=== PATIENT | male | born 1955 | race Caucasian/White ===

== ENCOUNTER 2024-08-21 08:51 | Inpatient (IN) ==
--- NOTE | 2024-08-21 09:31 | Emergency Department Note ---
Impression & Plan Wide-complex tachycardia, Palpitations, History of coronary artery disease ED Provider Note NAME: ELISA QUISPE AGE: 69 SEX: M : 1955 ARRIVES VIA: Walk-In INFORMANT: Patient ED PROVIDER(S): Anant Baxter MD CHIEF COMPLAINT: Nonsustained wide-complex tachycardia on heart monitor, referred. PLAN: Disposition: Admit MEDICAL DECISION MAKING: The patient is a pleasant 69-year-old gentleman with a past medical history of CAD with history of PCI remotely on low-dose aspirin who presents to the emergency department via walk-in accompanied by his for evaluation and admission for episodes of wide-complex tachycardia that were identified on an outpatient ZIO monitor. Patient reports that he has been having episodes of palpitations where he feels lightheaded as if he may pass out. He denies any chest pain or pressure when these occur. He reports since having his heart monitor his episodes were not as severe but did feel several. Due to concern for nonsustained ventricular tachycardia he was referred to the emergency department for admission and subsequent testing including echo and heart catheterization. Of note, as an aside, the patient reports recently receiving results of a prostate biopsy yesterday as well which was positive for prostate cancer. He reports he had an MRI scheduled for tomorrow but understands this will need to be rescheduled but hopes that he could be done soon as possible. On evaluation the patient no acute distress, afebrile with blood pressure 180s/90s and vital signs otherwise stable. Exam is otherwise unremarkable. EKG without overt acute ischemia. CXR negative for acute cardiopulmonary process per my personal preliminary review/interpretation. WBC within normal limits. H/H 13.1/39.3 without prior for comparison. Platelets within normal limits. Chemistry without metabolic acidosis. Electrolytes and LFTs unremarkable. High-sensitivity troponin 5.0, within normal limits. Lipase normal. TSH within normal notes. Dr. Krause, [facility], aware of patient's presentation and will patient. Appreciate consultation and recommendations. Echo and Heart cath to be performed today. Case was discussed with Leidy Frost, with [facility] who will evaluate the patient for admission. Further management per admitting team. Triage Nursing notes reviewed and agree them. Prior/external medical records reviewed Vital Signs: reviewed Differential diagnosis: Premature contractions, electrolyte abnormality, cardiac dysrhythmia, thyroid dysfunction, pulmonary embolism, infection, gastrointestinal, as well as other pathologies. ER treatment provided: See below. Diagnostics interpreted by me: ECG: Sinus bradycardia, 59 bpm, no ectopy, no overt ST elevation or depression, QTc 417, QRS 92 per Cardiac Monitoring: An order for continuous cardiac monitoring was placed and demonstrated Sinus bradycardia, 59 bpm, no ectopy Laboratory studies: See below Imaging studies: See below Consultation(s): Dr. Krause, [facility] cardiology. Case was discussed with Олег Celis magda LERMA[facility] who will evaluate the patient for admission. HPI: Per MDM. ROS: See above HPI for pertinent positives & negatives. A total of 10 systems reviewed and were otherwise negative. VITALS:See Below PHYSICAL EXAMINATION: GENERAL: Awake, alert, well-appearing, in no distress HENT: Normocephalic, atraumatic. Oropharynx unremarkable. EYES: Normal conjunctiva. Sclera non-icteric. NECK: Supple. No nuchal rigidity. FROM. No JVD. RESPIRATORY: Clear to auscultation. CARDIAC: Regular rate, normal rhythm. Extremities warm and well perfused. Pulses equal. ABDOMEN: Soft, non-distended. No tenderness to palpation. No rebound or guarding. No masses. MUSCULOSKELETAL: Chest examination reveals no tenderness. The back is symmetrical on inspection without obvious abnormality. There is no CVA tenderness to palpation. No joint edema. LOWER EXTREMITIES: Calves are equal size bilaterally and non-tender. No edema. No discoloration. NEURO: Normal sensorium. No sensory or motor deficits noted. SKIN: No rash or jaundice noted. 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 Beliefs That Will Affect Care: None Current Living Situation: Spouse Other Information That Helps Us Care for You: No Feels Safe at Home: Yes Safety Concerns: Feels Safe At This Time Assistive Devices: CPAP, Glasses and Other Assistive Devices Comment: dental implants Allergies Allergies Allergy/AdvReac Type Severity Reaction Status Date / Time clopidogrel [From Plavix] AdvReac Severe SEE COMMENT Verified 08/21/24 13:27 Home Meds Home Medications Medication Instructions Recorded Confirmed metoprolol succinate 25 mg 25 mg PO HS 07/03/21 08/21/24 tablet,extended release 24 hr omega 5-jld-xgz-fish oil 1,000 mg 1 cap PO HS 07/03/21 08/21/24 (120 mg-180 mg) capsule (Fish Oil) atorvastatin 20 mg tablet 0 mg PO QAM 08/21/24 08/21/24 lisinopril 20 mg tablet 20 mg PO QAM 08/21/24 08/21/24 Previous Rx's Medication Instructions Recorded amiodarone 200 mg tablet 200 mg PO QAM #30 tabs 08/21/24 Results & Data (ED) Vital Signs Vital Signs - 24 hr 08/21/24 08:59 08/21/24 09:26 08/21/24 09:51 Temperature 36.6 C Temperature Source Temporal Artery Scan Pulse Rate 60 54 L Pulse Rhythm Regular Pulse Strength Normal Respiratory Rate 18 Respiratory Effort / Characteristics Non-Labored Spontaneous Respiratory Depth Normal Respiratory Pattern Regular Blood Pressure 182/94 H Blood Pressure Mean 123 Blood Pressure Position Sitting Pulse Oximetry 99 Oxygen Delivery Method Room Air Room Air Sepsis Recent Fever Within 48 Hours No Sepsis New/Unexplained Change in Mental Status N/A Sepsis Action Taken by Nursing No Action Required 08/21/24 10:00 08/21/24 10:16 08/21/24 10:30 Temperature Temperature Source Pulse Rate 54 L 57 L 55 L Pulse Rhythm Pulse Strength Respiratory Rate 13 21 12 Respiratory Effort / Characteristics Respiratory Depth Respiratory Pattern Blood Pressure 151/89 H 150/82 H Blood Pressure Mean 108 102 Blood Pressure Position Pulse Oximetry 100 96 98 Oxygen Delivery Method Room Air Sepsis Recent Fever Within 48 Hours Sepsis New/Unexplained Change in Mental Status Sepsis Action Taken by Nursing Laboratory Data Attestation: I reviewed the patient's lab results. 08/21/24 09:30 08/21/24 09:30 Lab Results 08/21/24 Range/Units 09:30 WBC 5.58 (4.8-10.8) K/ul RBC 4.17 L (4.70-6.10) M/uL Hgb 13.1 L (14.0-18.0) g/dl Hct 39.3 L (42.0-52.0) % MCV 94.2 (80.0-100.0) fL MCH 31.4 (25.0-34.0) pg MCHC 33.3 (32.0-36.0) g/dL RDW Std Deviation 49.1 H (36.4-46.3) fL RDW Coeff of Jasmeet 14.2 (11.5-14.5) % Plt Count 278 (130-400) K/uL MPV 8.9 L (9.4-12.4) fL Immature Gran % (Auto) 0.2 % Neut % (Auto) 58.8 % Lymph % (Auto) 29.2 % [place] % (Auto) 7.5 % Eos % (Auto) 3.0 % Baso % (Auto) 1.3 % Neut # (Auto) 3.28 (1.40-6.50) K/uL Lymph # (Auto) 1.63 (1.20-3.40) K/uL [place] # (Auto) 0.42 (0.11-0.59) K/uL Eos # (Auto) 0.17 (0.00-0.50) K/uL Baso # (Auto) 0.07 (0.00-0.20) K/uL Immature Gran # (Auto) 0.01 (0.01-0.20) K/uL PT 10.0 (9.0-12.0) Seconds INR 0.9 (0.9-1.1) Sodium 138 (136-145) mmol/L Potassium 4.4 (3.5-5.1) mmol/L Chloride 105 (98-107) mmol/L Carbon Dioxide 24 (21-32) mmol/L Anion Gap 9 (3-11) BUN 20 (6-23) mg/dl Creatinine 0.93 (0.6-1.4) mg/dl Est Cr Clr Drug Dosing 77.1 ml/min eGFR 90.00 BUN/Creatinine Ratio 21.5 H (10-20) Glucose 91 (70-99(Fasting)) mg/dl Calcium 9.2 (8.6-10.3) mg/dl Phosphorus 3.1 (2.5-4.9) mg/dl Magnesium 2.1 (1.7-2.4) mg/dl Total Bilirubin 0.4 (0.2-1.0) mg/dl AST 20 (13-39) U/L ALT 12 (7-52) U/L Alkaline Phosphatase 67 (34-104) U/L Troponin I High Sens 5.0 (0-20) pg/ml Total Protein 7.1 (6.0-8.3) gm/dl Albumin 4.5 (3.4-5.0) gm/dl Globulin 2.6 (2.5-4.0) gm/dl Albumin/Globulin Ratio 1.7 (0.9-2) Lipase 27 (11-82) U/L TSH 2.228 (0.300-4.500) uIu/ml Administered Medications Discontinued Medications Amiodarone HCl (Amiodarone 200 Mg Tab) 200 [facility] Stop: 09/20/24 14:44 Last Admin: 08/21/24 15:37 Dose: 200 mg Documented By: LISA Aspirin (Aspirin 81 Mg Chew) 324 mg PO NOW STA Stop: 08/21/24 12:03 Last Admin: 08/21/24 13:00 Dose: 324 mg Documented By: LISA Fentanyl Citrate (Fentanyl Citrate Pf 100 Mcg/2 Ml Vial) Confirm Administered Dose 100 mcg .ROUTE .STK-MED ONE Stop: 08/21/24 13:30 Last Increment: 08/21/24 14:10 Dose: 75 mcg Documented By: DAVID Heparin Sodium (Porcine) (Heparin (Porcine) 1000 Unit/Ml 10 Ml ([employer] Professional Use Only)) Confirm Administered Dose 10,000 units .ROUTE .STK-MED ONE Stop: 08/21/24 13:30 Last Admin: 08/21/24 14:11 Dose: 5,000 units Documented By: DAVID Heparin Sodium/Sodium Chloride (Heparin In Nss Infusion 1000 Unit/500 Ml (2 U/Ml) Bag) Confirm Administered Dose 3,000 units IV .STK-MED ONE Stop: 08/21/24 13:30 Last Admin: 08/21/24 14:11 Dose: 3,000 units Documented By: DAVID Sodium Chloride (Nss) 1,000 mls @ 100 mls/hr IV .Q10H GERMÁN Stop: 08/21/24 23:18 Last Infusion: 08/21/24 18:26 Dose: Infused Documented By: Infusion: 08/21/24 15:51 Dose: 100 mls/hr Documented By: Admin: 08/21/24 13:00 Dose: 75 mls/hr Documented By: LISA Ioversol (Optiray 350) Confirm Administered Dose 1 ml .ROUTE .STK-MED ONE Stop: 08/21/24 13:31 Last Admin: 08/21/24 14:11 Dose: 20 ml Documented By: DAVID Midazolam HCl (Midazolam Hcl 1 Mg/Ml 2ml Vial) Confirm Administered Dose 2 mg .ROUTE .STK-MED ONE Stop: 08/21/24 13:30 Last Admin: 08/21/24 14:11 Dose: 2 mg Documented By: DAVID Nicardipine HCl (Nicardipine 2,000 Mcg/20 Ml Syr) Confirm Administered Dose 2,000 mcg .ROUTE .STK-MED ONE Stop: 08/21/24 13:31 Last Admin: 08/21/24 14:11 Dose: 2,000 mcg Documented By: DAVID Nitroglycerin/Dextrose (Nitroglycerin/D5w 100mcg/Ml 20ml Syr) Confirm Administered Dose 2,000 mcg .ROUTE .STK-MED ONE Stop: 08/21/24 13:31 Last Admin: 08/21/24 14:12 Dose: 2,000 mcg Documented By: DAVID Imaging Data Radiologist's Impression: Chest X-Ray 08/21/24 09:29 XR chest 1V portable CLINICAL HISTORY: Chest pain, nonspecific COMPARISON STUDY: 02/06/2011 FINDINGS: Heart size and pulmonary vasculature are normal. No effusion, consolidation, or pneumothorax. IMPRESSION: No acute findings. ACT 112: Negative or not required by law. Electronically signed by: Scooter Pan M.D. 08/21/2024 9:39 AM Discharge Plan Visit Data Chief Complaint: Tachycardia Stated Complaint: HEART PROBLEM,DOC REF ED Provider: Anant Baxter Discharge Problem: Wide-complex tachycardia, Palpitations, History of coronary artery disease Patient Disposition: Admitted As Inpatient Condition: Good Discharge Instructions Interventions: ED Discharge Assessment Last Done: 08/21/24 11:30
[2024-08-21 09:39] LABS: Basophils # (auto) 0.07 K/uL (0.00-0.20); Basophils % (auto) 1.3 %; Eosinophils # (auto) 0.17 K/uL (0.00-0.50); Hematocrit (blood only) 39.3 % (42.0-52.0); Hemoglobin 13.1 g/dl (14.0-18.0); Immature Granulocytes # (auto) 0.01 K/uL (0.01-0.20); Immature Granulocytes % (auto) 0.2 %; Lymphocytes # (auto) 1.63 K/uL (1.20-3.40); Lymphocytes % (auto) 29.2 %; Mean Corpuscular Hemoglobin 31.4 pg (25.0-34.0); Mean Corpuscular Hgb Conc 33.3 g/dL (32.0-36.0); Mean Corpuscular Volume 94.2 fL (80.0-100.0); Mean Platelet Volume 8.9 fL (9.4-12.4); Monocytes # (auto) 0.42 K/uL (0.11-0.59); Monocytes % (auto) 7.5 %; Neutrophils # (auto) 3.28 K/uL (1.40-6.50); Neutrophils % (auto) 58.8 %; Platelet Count 278 K/uL (130-400); RDW Coefficient of Variation 14.2 % (11.5-14.5); RDW Standard Deviation 49.1 fL (36.4-46.3); Red Blood Count 4.17 M/uL (4.70-6.10); White Blood Count 5.58 K/ul (4.8-10.8)
--- NOTE | 2024-08-21 09:40 | XRay Report ---
XR chest 1V portable CLINICAL HISTORY: Chest pain, nonspecific COMPARISON STUDY: 02/06/2011 FINDINGS: Heart size and pulmonary vasculature are normal. No effusion, consolidation, or pneumothora x. IMPRESSION: No acute findings. ACT 112: Negative or not required by law. Electronically signed by: Scooter Pan M.D. 08/21/2024 9:39 AM
[2024-08-21 10:00] LABS: Albumin Globulin Ratio 1.7 (0.9-2); Albumin Level 4.5 gm/dl (3.4-5.0); BUN Creatinine Ratio 21.5 (10-20); Bilirubin,Total 0.4 mg/dl (0.2-1.0); Calcium 9.2 mg/dl (8.6-10.3); Creatinine Clr Calc Pharmacy 77.1 ml/min; Globulin 2.6 gm/dl (2.5-4.0); Magnesium 2.1 mg/dl (1.7-2.4); Phosphorus 3.1 mg/dl (2.5-4.9); Potassium 4.4 mmol/L (3.5-5.1); Total Protein 7.1 gm/dl (6.0-8.3)
[2024-08-21 10:14] LABS: Thyroid Stimulating Hormone 2.228 uIu/ml (0.300-4.500)
[2024-08-21 10:20] LABS: INR 0.9 (0.9-1.1)
--- NOTE | 2024-08-21 10:38 | History & Physical Report ---
Date of Service August 21, 2024 Assessment & Plan (1) Hyperlipidemia: (2) Hypertension: (3) Palpitations: (4) V-tach: (5) Prostate cancer: Plan The patient is a 69-year-old male who presented to the ED on 08/21/2024 after he was sent in by Dr. Givens for episodes of V. tach on Zio patch monitor Palpitations V. tach Noted on Zio patch, longest episode up to 11 minutes, sent in by Dr. Givens Cardiology consulted, check echo, plan for cardiac cath today 08/21 Adjust metoprolol per cardiology, telemetry monitoring Hx CAD with stent: Continue baby aspirin, stenting to proximal LAD in 02/2011 Hx HLD/HTN: Statin on hold for now with muscle aches, can recheck lipid panel Newly diagnosed adenocarcinoma of the prostate Prostate biopsy completed on 08/15 suggestive of adenocarcinoma Plans for MRI and further workup outpatient A total of 60 minutes was spent on chart review/facilitating plan of care/discussion with consultants/reviewing diagnostic data Full code DVT prophylaxis: SCDs, hold off on AC for now with upcoming procedure History of Present Illness Chief Complaint: Heart palpitations Primary Care Provider: Sameer Lara DO The patient is a 69-year-old male with a past medical history of CAD s/p bare- metal stent to proximal left anterior descending coronary [id number], HLD, HTN, recently diagnosed new prostate cancer August 2024 who presents to the ED on 08/21/2024 with complaints of intermittent palpitations. The patient was seen in cardiology's office on 07/27/2024 with complaints of palpitations with exertion. At this time, Zio patch was placed. Last evening on 08/20/2024, Dr. Givens was notified of episodes of V. tach, longest episode lasting up to 11 minutes. The patient was asymptomatic. He was directed to take an extra dose of metoprolol a nd directed to come to the ER. Patient was also recently being worked up for elevated PSA and had a recent biopsy of the prostate on 08/15/2024. Result came back for adenocarcinoma. Patient is scheduled for an MRI on 08/22/2024 for further workup. On arrival to the ED, labs are fairly unremarkable Chest x-ray negative On exam, the patient denies any chest pain/shortness of breath/fever/chills/ abdominal pain. Denies any nausea/vomiting/diarrhea. Denies any dizziness or syncopal episodes Allergies Allergy/AdvReac Type Severity Reaction Status Date / Time clopidogrel [From Plavix] AdvReac Severe SEE COMMENT Verified 08/21/24 13:27 Home Medications Medication Instructions Recorded Confirmed Type metoprolol succinate 25 mg 25 mg PO HS 07/03/21 08/21/24 History tablet,extended release 24 hr omega 5-rvq-mvj-fish oil 1,000 mg 1 cap PO HS 07/03/21 08/21/24 History (120 mg-180 mg) capsule (Fish Oil) atorvastatin 20 mg tablet 0 mg PO QAM 08/21/24 08/21/24 History lisinopril 20 mg tablet 20 mg PO QAM 08/21/24 08/21/24 History Past Med/Surg History Problem List Dyslipidemia Wide-complex tachycardia (Acute) Prostate cancer V-tach Palpitations (Acute) Medical History Hyperlipidemia Hypertension Family History Other Family history non-contributory Social History Smoking Status: Never smoker Second Hand Exposure: No; Do You Dip or Chew Tobacco: No; Tobacco Cessation Education Requested by Patient: No Hx Alcohol Use: Yes Alcohol type: beer Hx Substance Use: No Preferred Language: Icelandic 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 Beliefs That Will Affect Care: None Current Living Situation: Spouse Other Information That Helps Us Care for You: No Feels Safe at Home: Yes Safety Concerns: Feels Safe At This Time Assistive Devices: CPAP, Glasses and Other Assistive Devices Comment: dental implants Review of Systems Review of Systems: All systems reviewed & are unremarkable except as noted in HPI & below Physical Exam Constitutional: WD/WN, vitals as above Eyes: PERRL, conjunctivae normal, anicteric sclerae ENMT: external ear and nose normal, oropharynx normal Respiratory: normal respiratory effort, lungs clear to auscultation Cardiovascular: RRR, no murmur, no edema Gastrointestinal (Abdomen): normal bowel sounds, soft, nontender, no hepatosplenomegaly Musculoskeletal: no cyanosis or clubbing, extremities motor strength 5/5 Neurologic: PERRL, EOMI, accommodation nl, no face palsy, no dysarthria Psychiatric: A+Ox3, euthymic affect Lymphatic: no cervical or axillary lymphadenopathy Results & Data Results & Data Vital Signs (Past 12 Hours) Vital Signs Temp Pulse Resp BP Pulse Ox O2 Del Method 08/21/24 10:16 57 L 21 96 Room Air 08/21/24 10:00 54 L 13 151/89 H 100 08/21/24 09:51 54 L 08/21/24 09:26 Room Air 08/21/24 08:59 36.6 C 60 18 182/94 H 99 Room Air Laboratory Results Laboratory Results WBC 5.58 K/ul (4.8-10.8) 08/21/24 09:30 RBC 4.17 M/uL (4.70-6.10) L 08/21/24 09:30 Hgb 13.1 g/dl (14.0-18.0) L 08/21/24 09:30 Hct 39.3 % (42.0-52.0) L 08/21/24 09:30 MCV 94.2 fL (80.0-100.0) 08/21/24 09:30 MCH 31.4 pg (25.0-34.0) 08/21/24 09:30 MCHC 33.3 g/dL (32.0-36.0) 08/21/24 09:30 RDW Std Deviation 49.1 fL (36.4-46.3) H 08/21/24 09:30 RDW Coeff of Jasmeet 14.2 % (11.5-14.5) 08/21/24 09:30 Plt Count 278 K/uL (130-400) 08/21/24 09:30 MPV 8.9 fL (9.4-12.4) L 08/21/24 09:30 Immature Gran % (Auto) 0.2 % 08/21/24 09:30 Neut % (Auto) 58.8 % 08/21/24 09:30 Lymph % (Auto) 29.2 % 08/21/24 09:30 [place] % (Auto) 7.5 % 08/21/24 09:30 Eos % (Auto) 3.0 % 08/21/24 09:30 Baso % (Auto) 1.3 % 08/21/24 09:30 Neut # (Auto) 3.28 K/uL (1.40-6.50) 08/21/24 09:30 Lymph # (Auto) 1.63 K/uL (1.20-3.40) 08/21/24 09:30 [place] # (Auto) 0.42 K/uL (0.11-0.59) 08/21/24 09:30 Eos # (Auto) 0.17 K/uL (0.00-0.50) 08/21/24 09:30 Baso # (Auto) 0.07 K/uL (0.00-0.20) 08/21/24 09:30 Immature Gran # (Auto) 0.01 K/uL (0.01-0.20) 08/21/24 09:30 PT 10.0 Seconds (9.0-12.0) 08/21/24 09:30 INR 0.9 (0.9-1.1) 08/21/24 09:30 Sodium 138 mmol/L (136-145) 08/21/24 09:30 Potassium 4.4 mmol/L (3.5-5.1) 08/21/24 09:30 Chloride 105 mmol/L (98-107) 08/21/24 09:30 Carbon Dioxide 24 mmol/L (21-32) 08/21/24 09:30 Anion Gap 9 (3-11) 08/21/24 09:30 BUN 20 mg/dl (6-23) 08/21/24 09:30 Creatinine 0.93 mg/dl (0.6-1.4) 08/21/24 09:30 Est Cr Clr Drug Dosing 77.1 ml/min 08/21/24 09:30 eGFR 90.00 08/21/24 09:30 BUN/Creatinine Ratio 21.5 (10-20) H 08/21/24 09:30 Glucose 91 mg/dl (70-99(Fasting)) 08/21/24 09:30 Calcium 9.2 mg/dl (8.6-10.3) 08/21/24 09:30 Phosphorus 3.1 mg/dl (2.5-4.9) 08/21/24 09:30 Magnesium 2.1 mg/dl (1.7-2.4) 08/21/24 09:30 Total Bilirubin 0.4 mg/dl (0.2-1.0) 08/21/24 09:30 AST 20 U/L (13-39) 08/21/24 09:30 ALT 12 U/L (7-52) 08/21/24 09:30 Alkaline Phosphatase 67 U/L (34-104) 08/21/24 09:30 Troponin I High Sens 5.0 pg/ml (0-20) 08/21/24 09:30 Total Protein 7.1 gm/dl (6.0-8.3) 08/21/24 09:30 Albumin 4.5 gm/dl (3.4-5.0) 08/21/24 09:30 Globulin 2.6 gm/dl (2.5-4.0) 08/21/24 09:30 Albumin/Globulin Ratio 1.7 (0.9-2) 08/21/24 09:30 Lipase 27 U/L (11-82) 08/21/24 09:30 TSH 2.228 uIu/ml (0.300-4.500) 08/21/24 09:30 Impressions Chest X-Ray 08/21/24 09:29 XR chest 1V portable CLINICAL HISTORY: Chest pain, nonspecific COMPARISON STUDY: 02/06/2011 FINDINGS: Heart size and pulmonary vasculature are normal. No effusion, consolidation, or pneumothorax. IMPRESSION: No acute findings. ACT 112: Negative or not required by law. Electronically signed by: Scooter Pan M.D. 08/21/2024 9:39 AM Supervising Physician Co-Signing Physician Notes Attending Addendum: Case reviewed with the advanced practitioner. I have personally performed a history and physical examination on the patient. I have reviewed the advanced practitioner's documentation on the date of service referenced in note, and I agree with, and take responsibility for the plan of care. please refer to her notes for full details patient seen and examined, records reviewed by myself as well on exam, patient seen resting in bed, comfortable no active chest pain, palpitations, dizziness, nausea no other symptoms VS noted and reviewed oriented x3, not in distress, speaks in sentences with no effort nor accessory muscle use normal rate, regular rhythm, no murmurs clear breath sounds bilaterally non distended, soft, nontender no bipedal edema, erythema, warmth no neuro deficits all labs, imaging noted and reviewed ASSESSMENT AND PLAN> PALPITATIONS, EPISODES OF V TACH for cardiac cath today Cardiology service on board will await further recommendations after cardiac cath other diagnoses and plan of care as per advanced practitioner's notes I spent a total of 40 minutes coordinating, documenting, and providing care for this patient, excluding time spent in the performance of separately billed services or time spent by another provider/QHP. Jong Oneill MD
--- NOTE | 2024-08-21 10:43 | Cardiology Consultation ---
Date of Consultation August 21, 2024 Assessment & Plan (1) Wide-complex tachycardia: * Patient with very rapid, symptomatic wide-complex tachycardia, rate of just around 200 bpm at maximal with associated symptoms of dizziness. Morphology concerning for ventricular tachycardia versus supraventricular etiology with aberrant conduction. * Patient has been on metoprolol on a chronic basis and took his metoprolol this morning. * Recommend proceeding with invasive coronary angiography to exclude obstructive CAD as a culprit for his arrhythmia. * Aspirin 325 mg to be chewed ordered as he has not taken aspirin today * Continue outpatient treatment with metoprolol and losartan. (2) Prostate cancer: * Recent diagnosis of high-grade prostate carcinoma. * I called and spoke to his urologist, Dr. Garcia. The next step for his evaluation would be an MRI which the patient distantly scheduled for as an outpatient within the [facility] tomorrow and then outpatient radiation oncology consultation. * Patient is almost a week removed from his ultrasound-guided needle biopsy of the prostate with no symptoms of hematuria. No contraindications to dual antiplatelet therapy from a urology standpoint. (3) Dyslipidemia: * Patient notes longstanding muscle aches especially at night that he attributes to statin therapy. In the remote past he had been on simvastatin. It appears that at 1 point a prescription was provided for rosuvastatin but at that time it was too expensive and he has been maintained on atorvastatin 40 mg in the interim with ongoing muscle aches that he is very dissatisfied with. LDL level as of 07/31/2024 on atorvastatin 40 mg daily was 73, with normal CPK level. He has taken a 2-week break from the atorvastatin and he feels like his leg pains are better.Will likely proceed with a trial of rosuvastatin, with consideration of alternative therapy such as low-dose rosuvastatin plus ezetimibe or other agent as an outpatient. History of Present Illness History of Present Illness Mr Valdivia is a 69 year old male seen in cardiology consultation per the request of Dr Baxter for further evaluation given recent complaint of exertioanl palpitations and abnormal findings on outpatient ZioPatch cardiac cath lab manager. Patient seen in ED bay B3B. He was accompanied by his spouse, Glo. The patient describes a longstanding history of feeling episodes of palpitations where his heart will beat fast like it is beating out of his chest this may occur up to 6 times per day. In follow-up of the symptoms, a Jayshree patch was placed at the time of his recent outpatient cardiology follow-up on 07/27/2024 which revealed frequent runs of wide-complex tachycardia with rate approaching 200 bpm concerning for ventricular tachycardia versus supraventricular tachycardia with aberrant conduction. The longest episode was 10 minutes in duration and correlated with the patient triggered event. The patient states that while he was wearing the monitor, his palpitation symptoms were actually better than what they usually are he had actually been concerned that nothing had happened during the monitor. He denies any shannan syncopal episodes but notes lightheadedness when the episodes occur. He denies any exertional chest discomfort with activities such as caring for his property. His Recent medical history is notable for an elevation in prostate specific antigen and abnormal digital rectal examination. He therefore has been following with Dr. Garcia of [facility] urology and had undergone ultrasound-guided needle biopsy of the prostate on 08/15/2024 with pathology results revealing the presence of high-grade adenocarcinoma. Past Medical History: 1.CAD S/P anterior STEMI with Bare-metal stent to the proximal to mid left anterior descending coronary artery, 02/06/2011, [facility] 2.HTN 3.PVCs 4.Dyslipidemia 5.Recent diabnosis of Prostate carcinoma, biopsy 08/15/2024 Allergies Allergy/AdvReac Type Severity Reaction Status Date / Time clopidogrel [From Plavix] AdvReac Severe SEE COMMENT Verified 08/21/24 11:27 Home Medications Medication Instructions Recorded Confirmed Type metoprolol succinate 25 mg 25 mg PO HS 07/03/21 08/21/24 History tablet,extended release 24 hr omega 3-nsd-inz-fish oil 1,000 mg 1 cap PO HS 07/03/21 08/21/24 History (120 mg-180 mg) capsule (Fish Oil) atorvastatin 20 mg tablet 0 mg PO QAM 08/21/24 08/21/24 History lisinopril 20 mg tablet 20 mg PO QAM 08/21/24 08/21/24 History Patient History Medical History Hyperlipidemia Hypertension Family History Other Family history non-contributory Social History Smoking Status: Never smoker Preferred Language: Turkish Feels Safe at Home: Yes Review of Systems Review of Systems: All systems reviewed & are unremarkable except as noted in HPI & below Physical Exam Physical Exam: Temp Pulse Resp BP Pulse Ox O2 Del Method 36.6 C 56 L 16 136/63 98 Room Air 08/21/24 08:59 08/21/24 11:30 08/21/24 11:30 08/21/24 11:30 08/21/24 11:30 08/21/24 11:30 General: no acute distress and stated age Eyes: conjunctiva are pink and non-injected, sclera clear Neck: normal jugular venous pulse, no hepatojugular reflux Chest: normal shape and normal respiratory effort Lungs: clear to auscultation and percussion Cardiac Exam: - regular heart sounds, no murmurs, rubs, or gallops, no jugular venous distention Abdomen: abdomen soft, non-tender, no abnormal masses and no hepatosplenomegaly Musculoskeletal: no gait disturbance, no weakness Extremities: no edema and no cyanosis Neuro:awake, conversant, follows commands, no focal motor deficits Psych: appropriate affect and insight. Results & Data Vital Signs (Past 12 Hours) Vital Signs Temp Pulse Resp BP Pulse Ox O2 Del Method 08/21/24 10:30 55 L 12 150/82 H 98 08/21/24 10:16 57 L 21 96 Room Air 08/21/24 10:00 54 L 13 151/89 H 100 08/21/24 09:51 54 L 08/21/24 09:26 Room Air 08/21/24 08:59 36.6 C 60 18 182/94 H 99 Room Air Laboratory Results Cardiac Enzymes 08/21/24 Range/Units 09:30 AST 20 (13-39) U/L Troponin I High Sens 5.0 (0-20) pg/ml Coagulation 08/21/24 Range/Units 09:30 PT 10.0 (9.0-12.0) Seconds CBC 08/21/24 Range/Units 09:30 WBC 5.58 (4.8-10.8) K/ul RBC 4.17 L (4.70-6.10) M/uL Hgb 13.1 L (14.0-18.0) g/dl Hct 39.3 L (42.0-52.0) % Plt Count 278 (130-400) K/uL Neut # (Auto) 3.28 (1.40-6.50) K/uL Lymph # (Auto) 1.63 (1.20-3.40) K/uL [place] # (Auto) 0.42 (0.11-0.59) K/uL Eos # (Auto) 0.17 (0.00-0.50) K/uL Baso # (Auto) 0.07 (0.00-0.20) K/uL Comprehensive Metabolic Panel 08/21/24 Range/Units 09:30 Sodium 138 (136-145) mmol/L Potassium 4.4 (3.5-5.1) mmol/L Chloride 105 (98-107) mmol/L Carbon Dioxide 24 (21-32) mmol/L BUN 20 (6-23) mg/dl Creatinine 0.93 (0.6-1.4) mg/dl Glucose 91 (70-99(Fasting)) mg/dl Calcium 9.2 (8.6-10.3) mg/dl AST 20 (13-39) U/L ALT 12 (7-52) U/L Alkaline Phosphatase 67 (34-104) U/L Total Protein 7.1 (6.0-8.3) gm/dl Albumin 4.5 (3.4-5.0) gm/dl Intake and Output 08/20/24 08/21/24 08/21/24 22:59 06:59 14:59 Other: Weight 73.4 kg Weight Measurement Method Chair Scale Patient Weight 08/22/24 06:59 Weight 73.4 kg Diagnostic Findings EKG performed today 08/21/2024 at 9:10 AM and interpreted independently: Sinus bradycardia 59 bpm, age-indeterminate septal infarct pattern, baseline artifact. Echocardiogram performed today 08/21/2024: Mild concentric left ventricular hypertrophy No regional wall motion abnormalities Left ventricular ejection fraction is normal, 55-60%. Mild aortic valve sclerosis without stenosis Grade 1 diastolic dysfunction There is no significant valvular disease Summary of 14 day Zio Patch monitor worn from 07/27/24 to 08/10/24: Patient had a min HR of 44 bpm, max HR of 218 bpm, and avg HR of 69 bpm. Predominant underlying rhythm was Sinus Rhythm. 99 Ventricular Tachycardia runs occurred, the run with the fastest interval lasting 10 mins 58 secs with a max rate of 218 bpm (avg 191 bpm); the run with the fastest interval was also the longest. 16 Supraventricular Tachycardia runs occurred, the run with the fastest interval lasting 7 beats with a max rate of 207 bpm, the longest lasting 10.7 secs with an avg rate of 121 bpm. Junctional Rhythm was present. Ventricular Tachycardia, Supraventricular Tachycardia and Junctional Rhythm were detected within +/- 45 seconds of symptomatic patient event(s). Isolated SVEs were rare (<1.0%), SVE Couplets were rare (<1.0%), and SVE Triplets were rare (<1.0%). Isolated VEs were rare (<1.0%, 62156), VE Couplets were rare (<1.0%, 274), and VE Triplets were rare (<1.0%, 18). Ventricular Bigeminy and Trigeminy were present. Patient recorded 6 event markers and 7 diary entries which correlated with sinus rhythm with ventricular ectopy and an episode of extended ventricular tachycardia IMPRESSION: Sinus rhythm, average rate 69 beats per minute with multiple runs of wide complex tachycardia/ventricular tachycardia longest 10 minutes and 58 seconds in duration, average 191 beats per minute. Sixteen short runs of supraventricular tachycardia also observed Nuclear stress test performed 01/30/2024 as an outpatient: Normal with no scar or inducible ischemia, LVEF normal at 76% Outpatient echocardiogram 09/15/2015, normal wall motion, LVEF in the range of 55 to 59%, no significant valvular disease
[2024-08-21] MEDS ORDERED: ACETAMINOPHEN 325 MG TAB PO PRN (12:51)
[2024-08-21] MEDS: ASPIRIN 81 MG CHEW PO STA (13:00)
[2024-08-21] MEDS: SODIUM CHLORIDE 0.9% 1,000 ML IV SCH (13:00)
--- NOTE | 2024-08-21 13:19 | Pre Anesthesia Assessment ---
Date of Service August 21, 2024 Pre Sedation Assessment Vital Signs Temp Pulse Resp BP BP Pulse Ox O2 Del Method 08/21/24 12:51 98.4 F 17 174/83 H 100 Room Air 08/21/24 11:30 56 L 16 136/63 98 Room Air 08/21/24 11:21 62 22 136/63 97 08/21/24 10:30 55 L 12 150/82 H 98 08/21/24 10:16 57 L 21 96 Room Air 08/21/24 10:00 54 L 13 151/89 H 100 08/21/24 09:51 54 L 08/21/24 09:26 Room Air 08/21/24 08:59 97.9 F 60 18 182/94 H 99 Room Air Cardiovascular + regular rate Respiratory + respiratory effort normal Pre-Sedation Airway Assessment Smoking Status: Never smoker Hx Sleep Apnea: No Hx Difficult Intubation: No Short, Thick Neck: No Thyromental Distance: < 3.5 Finger Breadths Oral Cavity: + Dental Abnormalities Mallampati Class: III ASA: ASA3 Procedure Planning Contraindications for Sedation: none Current Medications Reviewed: Yes Notes The planned sedation has been discussed with the patient. Informed Consent was obtained. I have identified the patient, determined the appropriateness of sedation and have assessed the patient immediately prior to the procedure. All medicine(s) and interventions are by my order.
[2024-08-21] MEDS: fentaNYL citrate PF 100 MCG/2 ML VIAL ONE (14:10)
[2024-08-21] MEDS: MIDAZOLAM HCL 1 MG/ML 2ML VIAL ONE (14:11)
[2024-08-21] MEDS: niCARdipine 2,000 MCG/20 ML SYR ONE (14:11)
[2024-08-21] MEDS: HEPARIN (PORCINE) 1000 UNIT/ML 10 ML (CATH LAB USE ONLY) ONE (14:11)
[2024-08-21] MEDS: OPTIRAY 350 ONE (14:11)
[2024-08-21] MEDS: NITROGLYCERIN/D5W 100MCG/ML 20ML SYR ONE (14:12)
--- NOTE | 2024-08-21 14:13 | Post Anesthesia Assessment ---
Date of Service August 21, 2024 Post Sedation Assessment Vital Signs Temp Pulse Pulse Resp BP BP Pulse Ox 08/21/24 13:25 97.9 F 58 L 18 177/98 H 97 08/21/24 13:09 98.4 F 17 174/83 H 100 08/21/24 12:51 98.4 F 17 174/83 H 100 08/21/24 11:30 56 L 16 136/63 98 08/21/24 11:21 62 22 136/63 97 08/21/24 10:30 55 L 12 150/82 H 98 08/21/24 10:16 57 L 21 96 08/21/24 10:00 54 L 13 151/89 H 100 08/21/24 09:51 54 L 08/21/24 09:26 08/21/24 08:59 97.9 F 60 18 182/94 H 99 O2 Del Method 08/21/24 13:25 Room Air 08/21/24 13:09 Room Air 08/21/24 12:51 Room Air 08/21/24 11:30 Room Air 08/21/24 11:21 08/21/24 10:30 08/21/24 10:16 Room Air 08/21/24 10:00 08/21/24 09:51 08/21/24 09:26 Room Air 08/21/24 08:59 Room Air Recovery Score Activity: Moves 4 extremities Respiration: Deep Breath/Cough Circulation: +/-20% PreAnes Value Consciousness: Fully Awake Oxygen Saturation: O2 needed for >90% Discharge Sedation Level of Care: Fast Track Phase II Post Sedation Plan tiss
--- NOTE | 2024-08-21 14:27 | Cardiac Catheterization ---
[facility] Data: Brake Coupler Dinkey Cardiac Status Clinical evaluation leading to the procedure CAD Presenation: Sx unlikely to be ischemic Diagnostic Physicians Name: Maikel Figueroa MD Closure Device Recommendations: Medical Therapy and/or Counseling Cardiac Cath Procedure Full Procedure Date August 21, 2024 Pre-Procedure Diagnosis Pre-Procedure Diagnosis: Arrhythmia AUC Score AUC Score: 7 Post-Procedure Diagnosis Post-Procedure Diagnosis: Mild CAD and Elevated Intracardiac Pressures Procedure(s) Performed Procedure(s) Performed: Coronary Angiography and Left Heart Cath Manager Branch Maikel Figueroa MD Tandem Mill Operator(s) Madan Estimated Blood Loss Estimated Blood Loss: 5 Medication(s) Medication(s): Fentanyl, Heparin, Lidocaine 1%, Nicardipine, Nitroglycerin and Versed Summary of Findings Indication: Sustained ventricular tachycardia. History of CAD post prior BMS to LAD in 2010 Access: 6 Fr slender right radial artery Catheters: [place] Findings: LM -Short, normal caliber, no significant disease LAD -medium caliber, 40-50% in-stent restenosis, remainder of vessel without significant disease and extends to the apex. Small D1, medium D2 without significant disease. Jailed first septal with 80% ostial stenosis Circumflex -medium caliber, no significant disease. Large bifurcating OM 2 without disease. Small PLB's without disease. RCA -dominant, medium caliber, 30% earlymid stenosis, remainder of vessel without significant disease. Medium RPDA without disease. LVEDP -20 Arterial Closure: TR band Summary: 1. Mild to moderate nonobstructive coronary artery disease in major epicardial vessels - 40-50% mid LAD in-stent restenosis (jailed first septal with 80% ostial stenosis) 30% earlymid RCA 2. Elevated intracardiac filling pressure Recommendations: Further antiarrhythmics, VT management per Dr. Krause Continued ASCVD risk factor modification Hemodynamics Rest Ao:: 137/62/102 Final Ao: 138/68/94 LV: 143/20 Recommendations Recommendations: Medical Therapy and/or Counseling Radiation Exposure (mGy) 579 Contrast (mls) 40 Anesthesia Moderate [id number] Procedural Complication(s) None Disposition Brake Coupler Dinkey Holding/Recovery I attest to the content of the Intraoperative Record and any orders documented therein. Any exceptions are noted below. PolySuiteG Card Cath Procedure Codes Cardiac Catheterization Procedure 1: Cardiovascular Cath Procedures: 90023 Coronaries and LHC (+/-LV) Moderate Sedation Procedure 1: Sedation/Anesthesia: 98175 Mod Sedation by the same physician;Init15 Min Child Age 5 & Up PG Care Time/CCT Total # of Minutes Spent Total Time Spent with Patient: Total time spent is greater than 50% in coordination of care (as documented) at patient's floor/unit and/or counseling patient:
--- NOTE | 2024-08-21 14:35 | Communication Note ---
Date of Service: August 21, 2024 Cardiac catheterization with patent LAD stents, no obstructive CAD. Echocardiogram findings reveal normal LVEF without evidence of myocardial scar. Patient describes dizziness but no shannan syncope. Longest episode of the wide- complex tachycardia on the recent bus monitor was 10 minutes. Clinical features suggest low risk of sudden cardiac . Differential diagnosis includes supraventricular tachycardia with aberrant conduction, atrial flutter with aberrant conduction. Liver function tests, TSH, chest x-ray within normal limits today. Case discussed with EP. Continue metoprolol tartrate 25 mg daily, likely not much room to increase this. Start amiodarone 200 mg by mouth daily. Outpatient electrophysiology follow-up. Future considerations include loop recorder, EP study.
[2024-08-21] MEDS: AMIODARONE 200 MG TAB PO SCH (15:37)
[2024-08-21 15:48] VITALS: RESP 17
--- NOTE | 2024-08-21 15:57 | Communication Note ---
Date of Service: August 21, 2024 Patient reassessed. Stable for discharge on metoprolol succinate 25 mg daily in the evening and amiodarone 200 mg daily in the morning with food. Resume lisinopril tomorrow. Spouse to be the tour driver to his MRI of prostate tomorrow as outpatient. Outpatient cardiology follow up / EP evaluation to be arranged. I will place appointment request in his [facility] outpatient chart. Arti Krause, Cardiology
[2024-08-21 16:16] VITALS: PULSE 55; TEMP 97.7
[2024-08-21 16:57] VITALS: O2SAT 98
--- NOTE | 2024-08-21 17:20 | Discharge Summary ---
Discharge Summary Date of Service August 21, 2024 The patient is a 69-year-old male with a past medical history of CAD s/p bare- metal stent to proximal left anterior descending coronary [id number], HLD, HTN, recently diagnosed new prostate cancer August 2024 who presents to the ED on 08/21/2024 with complaints of intermittent palpitations. The patient was seen in cardiology's office on 07/27/2024 with complaints of palpitations with exertion. At this time, Zio patch was placed. Last evening on 08/20/2024, Dr. Givens was notified of episodes of V. tach, longest episode lasting up to 11 minutes. The patient was asymptomatic. He was directed to take an extra dose of metoprolol and directed to come to the ER. Patient was also recently being worked up for elevated PSA and had a recent biopsy of the prostate on 08/15/2024. Result came back for adenocarcinoma. Patient is scheduled for an MRI on 08/22/2024 for further workup. On arrival to the ED, labs are fairly unremarkable Chest x-ray negative The patient had an unremarkable echo and unremarkable cardiac catheterization. Cardiology recommending discharge on home dose of metoprolol and amiodarone added 200 mg daily in the morning with food. Patient may resume lisinopril tomorrow. Patient will need to follow with his PCP within 1 week of discharge. Patient will need to follow-up with cardiology as directed. Cardiac catheterization showed: 1. Mild to moderate nonobstructive coronary artery disease in major epicardial vessels - 40-50% mid LAD in-stent restenosis (jailed first septal with 80% ostial stenosis) 30% earlymid RCA Echo showed EF of 55-60%. Mild concentric LVH. Aortic valve sclerosis. Grade 1 diastolic dysfunction with no significant valvular disease Principal Dx & Hospital Course #1 = Principal Diagnosis (1) Hyperlipidemia: (2) Hypertension: (3) Palpitations: (4) V-tach: (5) Prostate cancer: Plan The patient is a 69-year-old male who presented to the ED on 08/21/2024 after he was sent in by Dr. Givens for episodes of V. tach on Zio patch monitor Palpitations V. tach Noted on Zio patch, longest episode up to 11 minutes, sent in by Dr. Givens Cardiology consulted, check echo, plan for cardiac cath today 08/21 Adjust metoprolol per cardiology, telemetry monitoring Hx CAD with stent: Continue baby aspirin, stenting to proximal LAD in 02/2011 Hx HLD/HTN: Statin on hold for now with muscle aches, can recheck lipid panel Newly diagnosed adenocarcinoma of the prostate Prostate biopsy completed on 08/15 suggestive of adenocarcinoma Plans for MRI and further workup outpatient A total of 60 minutes was spent on chart review/facilitating plan of care/discussion with consultants/reviewing diagnostic data Full code DVT prophylaxis: SCDs, hold off on AC for now with upcoming procedure Notes For Next Care Provider Medication Changes From Visit Amiodarone added Admission HPI Per Admitting Provider The patient is a 69-year-old male with a past medical history of CAD s/p bare- metal stent to proximal left anterior descending coronary [id number], HLD, HTN, recently diagnosed new prostate cancer August 2024 who presents to the ED on 08/21/2024 with complaints of intermittent palpitations. The patient was seen in cardiology's office on 07/27/2024 with complaints of palpitations with exertion. At this time, Zio patch was placed. Last evening on 08/20/2024, Dr. Givens was notified of episodes of V. tach, longest episode lasting up to 11 minutes. The patient was asymptomatic. He was directed to take an extra dose of metoprolol and directed to come to the ER. Patient was also recently being worked up for elevated PSA and had a recent biopsy of the prostate on 08/15/2024. Result came back for adenocarcinoma. Patient is scheduled for an MRI on 08/22/2024 for further workup. On arrival to the ED, labs are fairly unremarkable Chest x-ray negative On exam, the patient denies any chest pain/shortness of breath/fever/chill s/abdominal pain. Denies any nausea/vomiting/diarrhea. Denies any dizziness or syncopal episodes Discharge Exam Constitutional WD/WN, vitals as above Eyes PERRL, conjunctivae normal, anicteric sclerae ENMT external ear and nose normal, oropharynx normal Respiratory normal respiratory effort, lungs clear to auscultation Cardiovascular RRR, no murmur, no edema Gastrointestinal (Abdomen) normal bowel sounds, soft, nontender, no hepatosplenomegaly Musculoskeletal no cyanosis or clubbing, extremities motor strength 5/5 Neurologic PERRL, EOMI, accommodation nl, no face palsy, no dysarthria Psychiatric A+Ox3, euthymic affect Lymphatic no cervical or axillary lymphadenopathy Updated Medication List Medication Instructions Recorded Confirmed Type metoprolol succinate 25 mg 25 mg PO HS 07/03/21 08/21/24 History tablet,extended release 24 hr omega 3-pwg-xjm-fish oil 1,000 mg 1 cap PO HS 07/03/21 08/21/24 History (120 mg-180 mg) capsule (Fish Oil) amiodarone 200 mg tablet 200 mg PO QAM #30 tabs 08/21/24 Rx atorvastatin 20 mg tablet 0 mg PO QAM 08/21/24 08/21/24 History lisinopril 20 mg tablet 20 mg PO QAM 08/21/24 08/21/24 History Hospital Stay Data Consultations 08/21/24 10:26 ED Decision to Admit Stat 08/21/24 12:51 Consult Cardiology Routine Procedures Performed Operation Date: 08/21/24 12:30 Actual Procedures p Cineradiography w/Routine Exam - Maikel Figueroa MD p Cath, Left with Cors and Vent - Maikel Figueroa MD Diagnostic Imagining Performed 08/21/24 13:41 CL Cath Imgs for PACS use only Routine Pending Results Patient Have Any Pending Studies at Discharge: No Discharge Instructions Given to Patient (Per Discharging Provider) Please follow with your PCP within 1 week of discharge. Please follow-up with cardiology as directed. Continue follow-up for recent prostate cancer diagnosis. You are being started on amiodarone. Continue your other home medications. Return back to the ED with worsening symptoms Total Time Total Time Spent Total Time Spent (In Minutes): 55 Total Time Includes: Examination of the Patient, Discharge Planning, Medication Reconciliation, Communication With Other Providers and Other
[2024-08-21 17:40] VITALS: BP 148/71
[2024-08-21] MEDS ORDERED: OMEGA-3 (PURIFIED FISH OIL) 1 GM CAP PO SCH (21:00)
--- NOTE | 2024-08-22 06:13 | Electrocardiogram Report ---
Test Reason : Blood Pressure : */* mmHG Vent. Rate : 59 BPM Atrial Rate : 59 BPM P-R Int : 192 ms QRS Dur : 92 ms QT Int : 422 ms P-R-T Axes : 18 6 59 degrees QTcB Int : 417 ms Poor data quality, interpretation may be adversely affected Sinus bradycardia Septal infarct , age undetermined Abnormal ECG When compared with ECG of 09-Feb-2011 06:59, T wave inversion no longer evident in Anterior leads QT has shortened Confirmed by Steve Hill ([id number]) on 08/22/2024 6:12:53 AM Referred By: Noah Givens Confirmed By: Steve Hill
[2024-08-22] MEDS ORDERED: ASPIRIN 81 MG ECTAB PO SCH (09:00)
== END 2024-08-21 18:27 | disposition home or self-care (01) | DRG 287 ==
LOC: ED 08:51 → 4W 10:33